=== PATIENT | male | born 1985 ===

== ENCOUNTER 2017-04-01 19:55 | Emergency (ER) | payer OTHER ==
[2017-04-01 20:03] VITALS: BMI 29.7
[2017-04-01 20:07] VITALS: BP 138/86; PULSE 94; RESP 16; TEMP 99.4; O2SAT 97
[2017-04-01] MEDS ORDERED: Albuterol-Ipratrop 3 mg / 0.5 (3 ml) UD ONE (20:12)
[2017-04-01] MEDS ORDERED: Albuterol-Ipratrop 3 mg / 0.5 (3 ml) UD INH STA ×2 (20:17→20:35)
--- NOTE | 2017-04-01 20:32 | ED PDOC ---
HPI: CCC, URI, Sore Throat Time Seen by Provider: 04/01/17 20:13 Chief Complaint (Nursing): ENT Problem Chief Complaint (Provider): seasonal allergies History Per: Patient History/Exam Limitations: no limitations Have you had recent travel within the past 21 days to any of the following countries: [place], [place], [place] or [place]?: No Onset/Duration Of Symptoms: Days (x 1 week) Current Symptoms Are (Timing): Still Present Sick Contacts (Context): None Additional Complaint(s): Lorenzo Pearson is a 32 year old male, with no previous medical history, who presents to the ED with complaints of seasonal allergies ongoing for the past week despite taking multiple OTC medications including Clearitin, sudafed, afrin and an unknown nasal spray. He states symptoms include itchy watery eyes, cough and nasal congestion. Patient reports pharmacist at his local [facility] suggested the patient get a steroid. PMD: [facility] Past Medical History Reviewed: Historical Data, Nursing Documentation, Vital Signs Vital Signs: Last Vital Signs Temp 99.4 F 04/01/17 20:05 Pulse 94 H 04/01/17 20:05 Resp 16 04/01/17 20:05 BP 138/86 04/01/17 20:05 Pulse Ox 97 04/01/17 20:35 - Medical History PMH: No Chronic Diseases - Surgical History Surgical History: No Surg Hx - Family History Family History: States: Unknown Family Hx - Social History Current smoker - smoking cessation education provided: No Ex-Smoker (has not smoked in the last 12 months): No - Home Medications Home Medications: Ambulatory Orders Medication Instructions Recorded Cyclobenzaprine HCl [Flexeril] 10 mg PO BID PRN #12 tab 03/03/15 Ibuprofen [Motrin Tab] 800 mg PO Q6H PRN #20 tab 03/03/15 Hydrocortisone 0.5% [Cortizone 0.5 % TP BID #1 tube 07/17/15 0.5%] Acyclovir [Zovirax] 800 mg PO Q4 #35 tab 10/11/16 Albuterol HFA [Ventolin HFA 90 2 puff IH [id number] PRN #1 inh 04/01/17 mcg/actuation (8 g)] Cetirizine HCl [Zyrtec] 10 mg PO DAILY #15 capsule 04/01/17 Fluticasone Nasal [Flonase] 2 spr NS DAILY #1 spr 04/01/17 Prednisone [Deltasone] 3 tab PO DAILY #12 tablet 04/01/17 - Allergies Allergies/Adverse Reactions: Allergies Allergy/AdvReac Type Severity Reaction Status Date / Time No Known Allergies Allergy Verified 04/01/17 20:03 Review of Systems ROS Statement: Except As Marked, All Systems Reviewed And Found Negative Eyes: Positive for: Eyelid Inflammation ENT: Positive for: Nose Congestion Respiratory: Positive for: Cough Physical Exam - Reviewed Nursing Documentation Reviewed: Yes Vital Signs Reviewed: Yes - Physical Exam Appears: Positive for: Well, Non-toxic, No Acute Distress ENT: Positive for: Normal ENT Inspection. Negative for: Tonsillar Exudate Cardiovascular/Chest: Positive for: Regular Rate, Rhythm Respiratory: Positive for: Wheezing (expiratory bilaterally ) Neurologic/Psych: Positive for: Alert, Oriented - ECG O2 Sat by Pulse Oximetry: 97 (RA) Pulse Ox Interpretation: Normal - Progress ED Course And Treament: PREDNISONE 60 MG X 1 DOSE DUONEB X 2 DOSES WHEEZING IMPROVED ON RE-EVALUATION. PATIENT STATES HE HAS APPT WITH [facility] ON FRIDAY Medical Decision Making Medical Decision Making: Initial Impression: allergy Initial Plan: * duoneb * prednisone * peak flow pre/post treatment * reevaluation Scribe Attestation: Documented by Jill Cole, acting as a scribe for Martina Munoz PA-C. Provider Scribe Attestation: All medical record entries made by the Scribe were at my direction and personally dictated by me. I have reviewed the chart and agree that the record accurately reflects my personal performance of the history, physical exam, medical decision making, and the department course for this patient. I have also personally directed, reviewed, and agree with the discharge instructions and disposition. Disposition - Clinical Impression Clinical Impression: Reactive airway disease, Seasonal allergies - Patient ED Disposition Is Patient to be Admitted: No - Disposition Disposition: Routine/Home Disposition Time: 21:10 Condition: FAIR Prescriptions: Albuterol HFA [Ventolin HFA 90 mcg/actuation (8 g)] 2 puff IH [id number] PRN #1 inh PRN Reason: Shortness Of Breath Cetirizine HCl [Zyrtec] 10 mg PO DAILY #15 capsule Fluticasone Nasal [Flonase] 2 spr NS DAILY #1 spr Prednisone [Deltasone] 3 tab PO DAILY #12 tablet Instructions: Reactive Airways Disease (ED)
== END 2017-04-01 21:25 | disposition home or self-care (01) ==
LOC: H.ER 19:55
DX: J45.909 Unspecified asthma, uncomplicated (principal); J30.2 Other seasonal allergic rhinitis; Z87.891 Personal history of nicotine dependence